=== PATIENT | female | born 1980 | race Caucasian/White ===

== ENCOUNTER → 2016-11-17 | Outpatient (CLI) | payer BC, OTHER ==
[~2016-11-17] MED LIST: ACET-1138 PO; ADAL40KI INJ; ASPEC325 PO; FOLI1TAB7 PO; FRRG PO; MELO7.5T5 PO; NUTR-218 PO; PRENTAB26 PO; RXC5 PO; TRIA0.1C20 TOP
== END | disposition home or self-care (01) ==
LOC: C.LABSPEC 15:32
PROVIDERS: ATTEND Obstetrics & Gynecology
DX: L29.8 Other pruritus (principal)